=== PATIENT | male | born 1990 ===

== ENCOUNTER 2018-04-20 08:03 | Emergency (ER) | payer SELFPAY ==
[2018-04-20 08:15] VITALS: TEMP 98.9; O2SAT 98
[2018-04-20 08:27] VITALS: RESP 18
--- NOTE | 2018-04-20 08:34 | ED PDOC ---
HPI:Nausea, Vomiting, Diarrhea Additional Complaint(s): Pt seen and examined at bedside with attending. 27M PMH asthma p/w acute onset of multiple episodes NBNB vomiting and multiple episodes of watery, non-bloody diarrhea associated with abdominal cramping after eating a ham/cape verdean cheese sandwich from a supermarket for breakfast and then later for lunch lo mein kazakh food. Pt denies any associated fevers, cough, sore throat, SOB, chest pain and was in his usual state of health prior to developing the N/V diarrhea. PMD: None PMH: Asthma, controlled ALL: NKDA <Margot Sellers - Last Filed: 04/20/18 11:13> <Les Montes III - Last Filed: 04/20/18 13:10> Time Seen by Provider: 04/20/18 08:25 Chief Complaint (Nursing): Abdominal Pain Supervising Attending Note - Attestation: I have personally seen and examined this patient.: Yes I have fully participated in the care of the patient.: Yes I have reviewed all pertinent clinical information, including history, physical exam and plan: Yes - Notes: Notes:: pt seen/examined w/ resident agree w findings and plan. On my eval denied abdominal pain, had nontender abdomen and hunger had returned. Given instructions for followup and indications for return to ER. <Les Montes III - Last Filed: 04/20/18 13:10> Past Medical History Vital Signs: Last Vital Signs Temp 37.2 C 04/20/18 08:23 Pulse 85 04/20/18 08:23 Resp 18 04/20/18 08:23 BP 129/70 04/20/18 08:23 Pulse Ox 98 04/20/18 08:23 - Medical History PMH: Asthma - Family History Family History: States: No Known Family Hx <Margot Sellers - Last Filed: 04/20/18 11:13> Vital Signs: Last Vital Signs Temp 98.9 F 04/20/18 08:23 Pulse 82 04/20/18 11:42 Resp 18 04/20/18 11:42 BP 126/72 04/20/18 11:42 Pulse Ox 98 04/20/18 11:42 <Les Montes III - Last Filed: 04/20/18 13:10> - Home Medications Home Medications: Ambulatory Orders Medication Instructions Recorded Ondansetron HCl [Zofran] 4 mg PO Q6H #4 tablet 04/20/18 - Allergies Allergies/Adverse Reactions: Allergies Allergy/AdvReac Type Severity Reaction Status Date / Time No Known Allergies Allergy Verified 04/20/18 08:32 Review of Systems ROS Statement: Except As Marked, All Systems Reviewed And Found Negative Gastrointestinal: Positive for: Nausea, Vomiting, Diarrhea <Margot Sellers - Last Filed: 04/20/18 11:13> Physical Exam - Reviewed Vital Signs Reviewed: Yes - Physical Exam Appears: Positive for: Non-toxic Head Exam: Positive for: ATRAUMATIC Skin: Positive for: Normal Color, Warm, Dry Eye Exam: Positive for: Normal appearance, EOMI ENT: Positive for: Normal ENT Inspection Neck: Positive for: Supple Cardiovascular/Chest: Positive for: Regular Rate, Rhythm. Negative for: Murmur Respiratory: Positive for: Normal Breath Sounds. Negative for: Crackles, Rales, Rhonchi, Wheezing Gastrointestinal/Abdominal: Positive for: Normal Exam, Bowel Sounds, Soft. Negative for: Tenderness Extremity: Positive for: Normal ROM. Negative for: Calf Tenderness Neurologic/Psych: Positive for: Alert, Oriented <Margot Sellers - Last Filed: 04/20/18 11:13> - ECG O2 Sat by Pulse Oximetry: 98 <Margot Sellers - Last Filed: 04/20/18 11:13> Medical Decision Making Medical Decision Making: Highly suspicious for food poisoning. - Zofran - 2L LR bolus - Bentyl - PO challenge - Reeval 0920 Pt feeling much better, now tolerating water. 1045 Feeling much better, tolerating water, juice, crackers. <Margot Slelers - Last Filed: 04/20/18 11:13> Disposition - Patient ED Disposition Is Patient to be Admitted: No Counseled Patient/Family Regarding: Diagnosis, Rx Given - Disposition Disposition: Routine/Home Disposition Time: 11:13 <Margot Sellers - Last Filed: 04/20/18 11:13> <Les Montes III - Last Filed: 04/20/18 13:10> - Clinical Impression Clinical Impression: Gastroenteritis - Disposition Condition: IMPROVED Additional Instructions: Return to the ER if symptoms recur after 24hrs or development of fever, chills Prescriptions: Ondansetron HCl [Zofran] 4 mg PO Q6H #4 tablet Instructions: [place] Diet, Gastroenteritis (ED) Forms: [facility] (Thai), [facility] ED School/Work Excuse
[2018-04-20] MEDS: Lactated Ringer's 1,000 ML IV SCH ×2 (08:43→09:53)
[2018-04-20 11:45] VITALS: BP 126/72; PULSE 82
== END 2018-04-20 11:42 | disposition home or self-care (01) ==
LOC: H.ER 08:03
DX: K52.9 Noninfective gastroenteritis and colitis, unspecified (principal)
CPT/HCPCS: 96361; 96374; 99284; J2405; J7120

== ENCOUNTER 2018-09-09 11:32 | Emergency (ER) | payer SELFPAY ==
[2018-09-09 11:46] VITALS: O2SAT 98
[2018-09-09] MEDS ORDERED: Sodium Chloride 0.9% 1,000 ML IV STA (12:30)
--- NOTE | 2018-09-09 13:18 | ED PDOC ---
HPI: CCC, URI, Sore Throat Time Seen by Provider: 09/09/18 11:35 Chief Complaint (Nursing): Fever History Per: Patient History/Exam Limitations: no limitations Onset/Duration Of Symptoms: Days Current Symptoms Are (Timing): Still Present Location Of Pain: Throat, Diffuse Myalgias Sick Contacts (Context): None Associated Symptoms: Fever, Chills, Sore Throat, Cough Severity: None Additional History Per: Patient Additional Complaint(s): 28 yo M with PMHx of asthma presents with 2 days of worsening throat pain, weaknes, fever/chills, and decreased appetite. No N/V. Pt has not taken his temperature. NO CP, trouble breathing, wheezing. Past Medical History Vital Signs: Last Vital Signs Temp 99 F 09/09/18 11:45 Pulse 105 H 09/09/18 11:45 Resp 16 09/09/18 11:45 BP 114/69 09/09/18 11:45 Pulse Ox 98 09/09/18 11:45 - Medical History PMH: No Chronic Diseases, Asthma - Family History Family History: States: Unknown Family Hx - Home Medications Home Medications: Ambulatory Orders Medication Instructions Recorded Ondansetron HCl [Zofran] 4 mg PO Q6H #4 tablet 04/20/18 Amoxicillin/Clavulanate [Augmentin 1 tab PO BID #20 tab 09/09/18 875 MG-125 MG] Ondansetron [Zofran] 4 mg PO Q8H #10 tab 09/09/18 - Allergies Allergies/Adverse Reactions: Allergies Allergy/AdvReac Type Severity Reaction Status Date / Time No Known Allergies Allergy Verified 09/09/18 12:18 Review of Systems Constitutional: Positive for: Fever, Chills, Sweats, Weakness, Malaise Eyes: Negative for: Pain ENT: Negative for: Ear Pain Cardiovascular: Negative for: Chest Pain Respiratory: Positive for: Cough. Negative for: Shortness of Breath, Hemoptysis, SOB with Exertion Gastrointestinal: Negative for: Nausea, Vomiting Skin: Positive for: Rash Neurological: Negative for: Weakness, Numbness, Incoordination Psych: Negative for: Anxiety Physical Exam - Reviewed Vital Signs Reviewed: Yes - Physical Exam Appears: Positive for: Well, Non-toxic, Uncomfortable. Negative for: No Acute Distress Head Exam: Positive for: ATRAUMATIC Skin: Positive for: Normal Color, Warm, Dry Eye Exam: Positive for: Normal appearance ENT: Positive for: Normal ENT Inspection, Pharynx Is (erythematous with swollen tonsil and uvula, no exudates) Neck: Positive for: Normal Cardiovascular/Chest: Positive for: Regular Rate, Rhythm, Chest Non Tender Respiratory: Positive for: Normal Breath Sounds Gastrointestinal/Abdominal: Positive for: Normal Exam Back: Positive for: Normal Inspection - Laboratory Results Result Diagrams: 09/09/18 13:15 09/09/18 13:15 - ECG O2 Sat by Pulse Oximetry: 98 Medical Decision Making Medical Decision Makin yo M with viral like syndrome. -labs -IV fluids, toradol, zofran. -Influenza and strep swabs. reassess pt 1445 Re-evaluation of patient shows continued pain now with nausea and one episode of vomiting. Will given Dexamethasone for throat pain/swelling and zofran. Pt for re-evaluation. Pt to be signed out to Dr. Gimenez pending second IV fluids additional medications, and re-evaluation. Disposition - Clinical Impression Clinical Impression: Fever, Pharyngitis - Disposition Referrals: Arnel Mccain MD [Staff Provider] - Disposition: Transfer of Care Disposition Time: 15:00 Condition: FAIR Prescriptions: Amoxicillin/Clavulanate [Augmentin 875 MG-125 MG] 1 tab PO BID #20 tab Ondansetron [Zofran] 4 mg PO Q8H #10 tab Instructions: Bacterial Upper Respiratory Infection, Adult, Bacterial Upper Respiratory Infection, Adult (DC) Forms: [employer] (Guyanese), [facility] ED School/Work Excuse Print Language: ISRAELI
[2018-09-09 13:24] LABS: BASO # 0.1 K/uL (0.0-0.2); BASO % 0.5 % (0.0-2.0); EOS # 0.1 K/uL (0.0-0.7); EOS % 0.3 % (0.0-4.0); HEMOGLOBIN 14.6 g/dL (12.0-18.0); LYMPH # 1.2 K/uL (1.0-4.3); MEAN CELL VOLUME 90.1 fl (80.0-94.0); MEAN CORPUSCULAR HEMOGLOBIN 30.2 pg (27.0-31.0); MEAN CORPUSCULAR HGB CONC 33.5 g/dL (33.0-37.0); MEAN PLATELET VOLUME 7.9 fl (7.2-11.7); MONO % 9.6 % (0.0-10.0); NEUT # 17.4 K/uL (1.8-7.0); NEUT % 83.6 % (50.0-75.0); PLATELET COUNT 241 K/uL (130-400); RBC 4.86 Mil/uL (4.40-5.90); RED CELL DISTRIBUTION WIDTH 13.4 % (11.5-14.5); WHITE BLOOD COUNT 20.8 K/uL (4.8-10.8)
[2018-09-09 13:35] LABS: ALB/GLOB RATIO 1.4 (1.0-2.1); ALBUMIN 4.8 g/dL (3.5-5.0); ALT/SGPT 42 U/L (21-72); AST/SGOT 28 U/L (17-59); BLOOD UREA NITROGEN 11 mg/dl (9-20); CALCIUM 9.4 mg/dL (8.4-10.2); GFR NON-AFRICAN AMERICAN > 60
[2018-09-09] MEDS ORDERED: Amoxicillin-Clav 875-125 mg Tab PO STA (14:02)
[2018-09-09 14:03] LABS: BASOPHIL 1 % (0-2); LYMPHOCYTE 6 % (20-50); MONOCYTE 7 % (0-10); NEUTROPHIL 86 % (42-75); PLATELET ESTIMATE NORMAL (NORMAL); TOTAL CELLS COUNTED 100
[2018-09-09 14:14] LABS: LARGE PLATELETS PRESENT
[2018-09-09] MEDS ORDERED: Dexamethasone 12 MG in Sodium Chloride 0.9% 50 ML IVP STA (14:47)
--- NOTE | 2018-09-09 15:05 | RAD ---
Date of service: 09/09/2018 HISTORY: cough COMPARISON: No prior. TECHNIQUE: Chest PA and lateral views FINDINGS: LUNGS: No active pulmonary disease. PLEURA: No significant pleural effusion identified. No pneumothorax apparent. CARDIOVASCULAR: No aortic atherosclerotic calcification present. Normal cardiac size. No pulmonary vascular congestion. OSSEOUS STRUCTURES: No significant abnormalities. VISUALIZED UPPER ABDOMEN: Normal. OTHER FINDINGS: None. IMPRESSION: No active disease.
[2018-09-09 15:09] LABS: VENOUS BLOOD GAS BASE EXCESS 1.2 mmol/L (0.0-2.0); VENOUS BLOOD GAS PCO2 41 mmHg (40-60); VENOUS BLOOD GAS PO2 68 mm/Hg (30-55); VENOUS BLOOD PH 7.41 (7.32-7.43)
[2018-09-09] MEDS ORDERED: Amoxicillin-Clav 875-125 mg Tab PO ONE (15:53)
--- NOTE | 2018-09-09 18:04 | ED PDOC ---
- Laboratory Results Result Diagrams: 09/09/18 13:15 09/09/18 13:15 Lab Results: pO2 68 mm/Hg (30-55) H 09/09/18 15:02 VBG pH 7.41 (7.32-7.43) 09/09/18 15:02 VBG pCO2 41 mmHg (40-60) 09/09/18 15:02 VBG HCO3 25.8 mmol/L 09/09/18 15:02 VBG Total CO2 27.3 mmol/L (22-28) 09/09/18 15:02 VBG O2 Sat (Calc) 97.0 % (40-65) H 09/09/18 15:02 VBG Base Excess 1.2 mmol/L (0.0-2.0) 09/09/18 15:02 VBG Potassium 3.7 mmol/L (3.6-5.2) 09/09/18 15:02 Sodium 138.0 mmol/L (132-148) 09/09/18 15:02 Chloride 104.0 mmol/L (98-107) 09/09/18 15:02 Glucose 120 mg/dL (75-110) H 09/09/18 15:02 Lactate 1.2 mmol/L (0.7-2.1) 09/09/18 15:02 FiO2 21.0 % 09/09/18 15:02 Total Bilirubin 0.9 mg/dl (0.2-1.3) 09/09/18 13:15 AST 28 U/L (17-59) 09/09/18 13:15 ALT 42 U/L (21-72) 09/09/18 13:15 Alkaline Phosphatase 63 U/L (38-126) 09/09/18 13:15 Total Protein 8.2 G/DL (6.3-8.2) 09/09/18 13:15 Albumin 4.8 g/dL (3.5-5.0) 09/09/18 13:15 Globulin 3.4 gm/dL (2.2-3.9) 09/09/18 13:15 Albumin/Globulin Ratio 1.4 (1.0-2.1) 09/09/18 13:15 - ECG O2 Sat by Pulse Oximetry: 98 - Progress Re-evaluation Time: 18:02 Condition: Re-examined, Improved (Tolerated PO wishes to go home) Disposition - Clinical Impression Clinical Impression: Fever, Pharyngitis - POA Present On Arrival: None - Disposition Referrals: Arnel Mccain MD [Staff Provider] - Disposition: Routine/Home Disposition Time: 18:03 Condition: FAIR Prescriptions: Amoxicillin/Clavulanate [Augmentin 875 MG-125 MG] 1 tab PO BID #20 tab Ondansetron [Zofran] 4 mg PO Q8H #10 tab Instructions: Bacterial Upper Respiratory Infection, Adult (DC) Forms: Student [employer] (Maltese), [facility] ED School/Work Excuse Print Language: MACEDONIAN
[2018-09-09 18:39] VITALS: BP 118/78; PULSE 78; RESP 20; TEMP 97.7
== END 2018-09-09 18:52 | disposition home or self-care (01) ==
LOC: H.ER 11:32
DX: R50.9 Fever, unspecified (principal); J02.9 Acute pharyngitis, unspecified
CPT/HCPCS: 71046; 80053; 82803; 85025; 87070; 87430; 87804; 96374; 96375; 96376; 99283; J1100; J1885; J2405; J2765; J7030